=== PATIENT | female | born 1960 | race Caucasian/White ===

== ENCOUNTER 2016-06-15 15:02 | Emergency (ER) | payer MEDICARE, OTHER ==
[2016-06-15 17:37] LABS: HEMOGLOBIN 11.2 gm/dl (12.3-15.3); RED BLOOD COUNT 3.99 M/UL (4.00-5.10); WHITE BLOOD COUNT 4.2 K/UL (4.5-11.0)
[2016-06-15 17:56] LABS: BUN/CREATININE RATIO 22 (0-10)
== END 2016-06-15 19:59 | disposition left against medical advice (07) ==
LOC: ER1 15:02 → ZEROF 19:30
PROVIDERS: Emergency Medicine
DX: R07.9 Chest pain, unspecified (principal); J45.909 Unspecified asthma, uncomplicated; Z79.899 Other long term (current) drug therapy
CPT/HCPCS: 36415; 36600; 71020; 80053; 82803; 83880; 85025; 85610; 85730; 96374; 99285; G0378